=== PATIENT | female | born 1935 | race Caucasian/White ===

== ENCOUNTER 2018-12-17 21:55 | Inpatient (IN) | payer OTHER ==
[~2018-12-17] VITALS: Ht 165.1 cm; Wt 66.2 kg
[~2018-12-17 21:55] MED LIST: ACID REDUCER 1150 MG PO; ALLOPURINOL100 MG PO; ATENOLOL100 M1 PO; ATENOLOL50 M1 PO; CELLCEPT250 MG PO; CEPHALEXIN500 M1 PO; CLONIDINE0.2 MG PO; COZAAR25 M1 PO; CRESTOR10 M1 PO; CYCLOSPORINE PO; CYCLOSPORINE25 M1 PO; DILTIAZEM 24HR120 MG PO; EXELON4.6 MG/24 T; FUROSEMIDE20 M1 PO; Glimepiride1 MG PO; HUMALOG100 U/ML SC; METFORMIN500 MG PO; NEURONTIN300 MG PO; PANTOPRAZOLE SO40 MG PO; SEPTRA DS 800 M1 TAB PO; SODIUM BICARBO650 MG PO; SYNTHROID RP0.1 MG PO; VITAMIN D50000 I3 PO; XARE20MG PO
[2018-12-17 22:17] VITALS: BP 133/68
[2018-12-17 22:39] VITALS: BP 137/44
[2018-12-17 22:59] LABS: HEMATOCRIT 34.7 % (37.0-47.0); HEMOGLOBIN 10.3 g/dl (12.0-16.0); MEAN CORPUSCULAR HGB 27.3 pg (27.0-31.0); MEAN CORPUSCULAR HGB CONC 29.7 g/dl (33.0-37.0); MEAN PLATELET VOLUME 11.1 fl (9.6-12.3); PLATELET COUNT AUTOMATED 569 10*3/uL (130-400); RED BLOOD COUNT 3.77 10*6/uL (4.10-5.10); RED CELL DISTRI WIDTH 17.7 % (0-14.5); WHITE BLOOD COUNT 28.7 10*3/uL (4.8-10.8)
[2018-12-17 23:11] VITALS: BP 94/62
[2018-12-17 23:19] LABS: ALBUMIN 1.6 gm/dl (3.1-4.5); CREATININE 1.31 mg/dL (0.55-1.02); POTASSIUM 4.2 mmol/L (3.5-5.1); TOTAL PROTEIN 6.8 gm/dL (6.4-8.2)
--- NOTE | 2018-12-17 23:21 | NUR ---
PATIENTS DAUGHTER CALLED IN AND WAS GIVEN UPDATE ON HER MOTHER AT THIS TIME. PATIENTS DAUGHTER EXPLAINED TO ME THAT SHE HAD A CVA 4 MONTHS AGO NOT 2 TWO MONTHS AGO.
--- NOTE | 2018-12-17 23:22 | NUR ---
PATIENT HAS ESCORATION UNDER THE LEFT BREAST NO PHOTO TAKEN OF THIS NO DRAINAGE NOTHING OPEN AT THIS TIME.
--- NOTE | 2018-12-17 23:23 | NUR ---
CRITICAL LAB LACTIC ACID 8.9. DR ALEX NOTIFIED OF THIS
[2018-12-17 23:25] LABS: INTERNATIONAL NORM RATIO 1.6 (2.0-3.5)
[2018-12-17 23:26] LABS: TROPONIN I 0.178 ng/ml (<0.045)
[2018-12-17 23:30] VITALS: BP 110/63
[2018-12-17 23:34] LABS: TOTAL CELLS COUNTED 100 #CELLS; TOXIC GRANULATION MARKED
[2018-12-17 23:35] LABS: BURR CELLS MODERATE; PLATELET SUFFICIENCY HIGH (NORMAL)
[2018-12-18] VITALS (16 sets, daily range): BP systolic 79–120; BP diastolic 33–73
[2018-12-18 00:10] LABS: BILIRUBIN 1+ (NEGATIVE); BLOOD NEGATIVE (NEGATIVE); CLARITY SL CLOUDY (CLEAR); COLOR YELLOW (YELLOW); GLUCOSE NEGATIVE (NEGATIVE); KETONE TRACE (NEGATIVE); LEUKO ESTERASE NEGATIVE (NEGATIVE); NITRITE NEGATIVE (NEGATIVE); SPECIFIC GRAVITY 1.025 (1.005-1.030)
[2018-12-18 00:17] LABS: BACTERIA TRACE
--- NOTE | 2018-12-18 00:41 | NUR ---
DR DE ANDA PLACED A RIGHT SIDED SUBCLAVIAN. PATIENT TOLERATED WELL. NO DISTRESS NOTED FROM THE PATIENT.
--- NOTE | 2018-12-18 00:53 | NUR ---
PATIENT SITTING UP IN BED AWAKE AND ALERT AT THIS TIME. NO DISTRESS NOTED. RN WILL CONT TO MONITOR. CONT CHAIR POST MACHINE OPERATOR IN PLACE AT THIS TIME.
--- NOTE | 2018-12-18 03:39 | NUR ---
BLOOD GLUCOSE 9 DR[address] ALEX AWARE
[2018-12-18 03:50] LABS: ABG HCO3 16.7 mmol/l (22-26); ARTERIAL BLOOD GAS PCO2 28.6 mmHg (35-45); ARTERIAL BLOOD GAS PH 7.379 (7.35-7.45); ARTERIAL BLOOD GAS PO2 65.1 mmHg (80-90)
[2018-12-18 03:52] LABS: ABG BASE EXCESS -7.3 mmol/L (-2.0-2.0)
--- NOTE | 2018-12-18 04:20 | NUR ---
A 83 YEAR OLD FEMALE admitted to ICCU, under the services of LEONARDO Cast MD with a diagnosis of HYPOGLYCEMIA,LEUKOCYTOSIS,ELEVATED TROPONINS. Chief complaint is CONFUSION, ABD PAIN. Patient arrived via stretcher from ER. Monitor applied. Initial assessment completed. Vital signs taken and recorded. LEONARDO CAST MD notified of admission to the unit. Orders received. See assessment for past medical history, medications and allergies. Patient and/or family oriented to unit. [facility] ICCU visitation policy reviewed. Clothing/patient valuable form completed. JESÚS STEPHENSON
[2018-12-18] MEDS ORDERED: BASAG SOL SQ (04:39)
[2018-12-18] MEDS ORDERED: RANITIDINE HCL150 M1 PO (04:41)
[2018-12-18] MEDS ORDERED: ELIQUIS2.5 M1 PO (04:43)
[2018-12-18] MEDS ORDERED: ASPIRIN CHEWABL81 MG PO (04:44)
[2018-12-18] MEDS ORDERED: CLONIDINE HCL0.2 MG PO (04:45)
--- NOTE | 2018-12-18 04:49 | NUR ---
MEDICATIONS REVIEWED ON MED LIST WERE MEDICATION BOTTLES BROUGHT IN BY PATIENT. NO FAMILY WITH PATIENT AND PATIENT UNABLE TO VERIFY OTHER HOME MEDS. ANH MCCARTHY RN
--- NOTE | 2018-12-18 05:16 | NUR ---
DR. PACE CALLED FOR ADMITTING ORDERS. WILL WOUND CARE ORDERS IN WHEN SHE SEES PT.
--- NOTE | 2018-12-18 06:12 | NUR ---
MELONY GUZMAN [id number] Please refer to the physician's history and physical for past medical history, comorbid conditions, and allergies. Diagnosis: HYPOGLYCEMIA LEUKOCYTOSIS ELEVATED TROPONIN Gavino Score: 14,MODERATE RISK WOUND DESCRIPTIONS: Wound Number: 1 Location of the wound: Coccyx Type of wound: unstageable Thickness: Full Size: 1.3cm x 1.5cm x <0.1cm Tunneling: none Undermining: none Sinus Tract: none Presence of Exudate: Serous Amount: Light Color: Yellow, red Odor: None Periwound Skin Appearance: Normal Wound edges: approximated Pain (associated with wound): none at time of assessment How does patient state this happened? pt unsure at time of assessment Wound Number: 2 Location of the wound: left buttocks Type of wound: stage 2 Thickness: Partial Size: 0.6cm x 0.6cm x 0.1cm Tunneling: none Undermining: none Sinus Tract: none Presence of Exudate: Serous Amount: Light Color: Red Odor: None Periwound Skin Appearance: Normal Wound edges: approximated Pain (associated with wound): none at time of assessment How does patient state this happened? pt unable to state how this happened Wound Number: 3 Location of the wound: left heel Type of wound: unstageable Thickness: Full Size: 1.5cm x 2.0cm x <0.1cm Tunneling: none Undermining: none Sinus Tract: none Presence of Exudate: none Amount: None Color: Red, black Odor: None Periwound Skin Appearance: Normal Wound edges: intact blister noted Pain (associated with wound): tender to touch How does patient state this happened? pt unsure how this happened Wound Number: 4 Location of the wound: right great toe Type of wound: stage 1 Size: 0.2cm x 0.5cm x <0.1cm Tunneling: none Undermining: none Sinus Tract: none Presence of Exudate: none Amount: None Color: Red Odor: None Periwound Skin Appearance: Normal Wound edges: closed Pain (associated with wound): none at time of assessment How does patient state this happened? pt unable to state how this happened Surface the patient is resting on: XPRT SKIN PREVENTION RECOMMENDATION: 1. Pressure redistribution support surface as appropriate 2. Elevate heels 3. Remove boots/TEDS every shift and reapply 4. Head of bed 30 degrees as tolerated 5. Assess nutrition and hydration 6. Manage moisture 7. Avoid the use of containment devices while in bed 8. Use absorptive products on surfaces limit layers of linens on bed 9. Turn and reposition every 1-2 hours in bed and every 1 hour in chair as tolerated 10. Weight shifts every 15 minutes while up in chair 11. Offloading with pillows or device to keep heels elevated off bed 12. Monitor skin at least every shift 13. Inspect under medical devices twice a day WOUND TREATMENT RECOMMENDATIONS: Wheelchair cushion when oob. Heel raiser pro boots to bilateral heels while in bed. Unstageable guidelines: Cleanse coccyx with nss and apply sureprep around the wound therahoney to wound bed and cover with optifoam gentle Stage 2 guidelines: Cleanse left buttocks with nss and apply sureprep around the wound therahoney to wound bed and cover with optifoam gentle. Unstageable guidelines: Apply sureprep to wound allow time to dry then cover with optifoam gentle. Consult Sanjuanita NGUYENP for possible debridement to coccyx.
--- NOTE | 2018-12-18 06:28 | NUR ---
PT RESTING IN BED WITH HOB ELEVATED. SIDE RAILS UP X'S 2. RIJ MLC INTACT. HEP LOCK INTACT RAN. TORREZ PATENT AND DRAINING SCANT CONRADO URINE. MOIST COUGH NOTED. CARDIZEM GTT CONT AT 5MG. MONITOR REMAINS A-FIB IN THE 90S. D10 CONT. BEDSIDE BLOOD SUGAR IS 45. 1 AMP OF D50 GIVEN. WILL MONITOR. CONT TO C/O DIFFUSE ABD PAIN. CONDITION GUARDED.
--- NOTE | 2018-12-18 07:50 | NUR ---
DR. PACE HERE TO SEE PATIENT
--- NOTE | 2018-12-18 08:41 | NUR ---
MEDICATED WITH DILAUDID 0.5MG IV FOR COMPLAINTS OF ABDOMINAL PAIN. RATES PAIN A 10 ON A PAIN SCALE OF 1-10.
--- NOTE | 2018-12-18 10:30 | NUR ---
Surgical Coder in to talk to patient. Patient states lives at home with her granddaughter. There are 0 steps in the home. There is a wheelchair ramp. Physician: Dr. Derrek Delgado [facility]: [facility] Home health services: none Patient's level of ADLs: MODERATE ASSIST Patient has working utilities: yes DME: walker Follow-up physician's appointment after d/c: she prefers to make her own follow up appt after discharge Does patient want to access PORTAL?: no Discharge plan discussed with patient. She states she lives in [place] with her granddaughter. She needs assistance with her ADLs and ambulates with a walker. She states she has been at [facility] recently. She is unsure about discharge planning. Will speak to family. MISTY MCNALLY
--- NOTE | 2018-12-18 10:40 | NUR ---
DR. COOK HERE TO SEE PATIENT ON CONSULT.
--- NOTE | 2018-12-18 10:53 | NUR ---
TAKEN DOWN FOR MRI ABDOMEN
--- NOTE | 2018-12-18 10:59 | NUR ---
DR. COOK, DR. CHINO, DR. AC, AND DR. TINEO ALL NOTIFIED OF CONSULTS.
--- NOTE | 2018-12-18 12:33 | NUR ---
BLOOD SUAGR 37. GIVEN 1 AMP D50
--- NOTE | 2018-12-18 13:30 | NUR ---
DR. PACE AND DR. CHINO MADE AWARE OF MRI ABDOMEN RESULTS
--- NOTE | 2018-12-18 15:13 | NUR ---
Message left for daughterIzzy, at [phone] regarding discharge planning. Awaiting return call.
--- NOTE | 2018-12-18 16:54 | NUR ---
COPY OF POWER OF BRAZING MACHINE OPERATOR HELPER PLACED ON CHART.
--- NOTE | 2018-12-18 18:03 | NUR ---
DR. SANTOYO'S ANSWERING SERVICE NOTIFIED OF CONSULT.
--- NOTE | 2018-12-18 19:14 | NUR ---
DR. SANTOYO CALLED IN. UPDATED ON PT CONDITION.
[2018-12-18 19:33] LABS: HEMATOCRIT 27.9 % (37.0-47.0); HEMOGLOBIN 8.6 g/dl (12.0-16.0); MEAN CELL VOLUME 91.8 fl (81.0-99.0); MEAN CORPUSCULAR HGB 28.3 pg (27.0-31.0); MEAN CORPUSCULAR HGB CONC 30.8 g/dl (33.0-37.0); MEAN PLATELET VOLUME 11.1 fl (9.6-12.3); PLATELET COUNT AUTOMATED 460 10*3/uL (130-400); RED BLOOD COUNT 3.04 10*6/uL (4.10-5.10); RED CELL DISTRI WIDTH 17.9 % (0-14.5); WHITE BLOOD COUNT 24.7 10*3/uL (4.8-10.8)
--- NOTE | 2018-12-18 19:47 | NUR ---
1929 DILAUDID 1MG IV GIVEN FOR C/O'S DIFFUSE ABD PAIN. MOIST COUGH NOTED. RESP THERAPY HERE. SUCTIONED ORALLY FOR SMALL AMOUNT BLOODY SPUTUM. CLENCHES MOUTH SHUT. NT SUCTIONING DONE. SUCTIONED FOR MODERATE AMOUNT WILLETT SPUTUM. HAD COARSE RHONCHI, LESSENED AFTER SUCTIONING. REPOSITIONED ON LEFT SIDE. HOB ELEVATED. ORAL CARE DONE AND ORAL BALANCE APPLIED TO MUCOUS MEMBRANES.
[2018-12-18 19:48] LABS: ALBUMIN 1.3 gm/dl (3.1-4.5); CREATININE 1.41 mg/dL (0.55-1.02); PHOSPHOROUS 3.5 mg/dL (2.5-4.9); POTASSIUM 4.1 mmol/L (3.5-5.1); TOTAL PROTEIN 5.3 gm/dL (6.4-8.2)
[2018-12-18 19:53] LABS: TOTAL CELLS COUNTED 100 #CELLS
[2018-12-18 19:54] LABS: TOXIC GRANULATION MODERATE
[2018-12-18 19:55] LABS: PLATELET SUFFICIENCY HIGH (NORMAL)
[2018-12-18 19:56] LABS: BURR CELLS FEW; TARGET CELLS FEW
--- NOTE | 2018-12-18 20:00 | NUR ---
PT HAD RHONCHI. WOULD NOT OPEN MOUTH TO SUCTION THROAT. PT NT SX RIGHT NARE. PASSED EASILY. THICK CLEAR/WHITE/CREAM SECRETIONS. PT TOLERATED WELL
--- NOTE | 2018-12-18 20:06 | NUR ---
EARLIER DILAUDID EFFECTIVE. RESTING IN BED WITH EYES CLOSED. PULSE OX 100% ON 3L. USING EAR PULSE OX. CARDIZEM GTT CONT AT 5MG. MONITOR REMAINS A-FIB WITH A VR IN THE 80-90'S. Q2H BP'S CONT. SEE INTERVENTION SCREEN. IV FLUIDS CONT. RIJ MLC INTACT. TORREZ PATENT AND DRAINING SCANT CONRADO URINE. DR. SANTOYO MADE AWARE OF LOW URINE OUTPUT EARLIER. DRSG INTACT TO LEFT HEEL AND COCCYX AND LEFT BUTTOCK. HEEL PROTECTORS INTACT.
--- NOTE | 2018-12-18 22:02 | NUR ---
REMAINS SLEEPING WIHTOUT DISTRESS.
[2018-12-19] VITALS: BP 92/50
--- NOTE | 2018-12-19 00:06 | NUR ---
BED IN ROTATION MODE. FREQUENT ORAL CARE DONE. PT REMAINS DROWSY. NO FURTHER C/O'S ABD PAIN VOICED.
[2018-12-19 02:00] VITALS: BP 96/40
[2018-12-19 04:00] VITALS: BP 94/44
[2018-12-19 04:38] LABS: HEMATOCRIT 27.2 % (37.0-47.0); HEMOGLOBIN 8.2 g/dl (12.0-16.0); MEAN CORPUSCULAR HGB 27.4 pg (27.0-31.0); MEAN CORPUSCULAR HGB CONC 30.1 g/dl (33.0-37.0); MEAN PLATELET VOLUME 11.6 fl (9.6-12.3); PLATELET COUNT AUTOMATED 432 10*3/uL (130-400); RED BLOOD COUNT 2.99 10*6/uL (4.10-5.10); RED CELL DISTRI WIDTH 18.1 % (0-14.5); WHITE BLOOD COUNT 24.2 10*3/uL (4.8-10.8)
[2018-12-19 04:53] LABS: ALBUMIN 1.2 gm/dl (3.1-4.5); CREATININE 1.51 mg/dL (0.55-1.02); PHOSPHOROUS 3.4 mg/dL (2.5-4.9); TOTAL PROTEIN 5.2 gm/dL (6.4-8.2)
[2018-12-19 04:56] LABS: ATYPICAL LYMPHS 1 % (0-0); BURR CELLS FEW; OVALOCYTES FEW; PLATELET SUFFICIENCY HIGH (NORMAL); TOTAL CELLS COUNTED 100 #CELLS
[2018-12-19 04:57] LABS: TOXIC GRANULATION SLIGHT
[2018-12-19 06:00] VITALS: BP 101/53
--- NOTE | 2018-12-19 06:07 | NUR ---
BEDSIDE BLOOD SUGAR IS 117. IV FLUIDS AND CARDIZEM GTT CONT. OPENS EYES TO CARE. FREQUENT ORAL CARE CONT. TORREZ PATENT. CONDITION GUARDED.
[2018-12-19 08:00] VITALS: BP 82/40
--- NOTE | 2018-12-19 08:00 | NUR ---
DR. PACE HERE TO SEE PATIENT. SHE SPOKE WITH DAUGHTER GIACOMO CASANOVA AND DECISION WAS MADE TO MAKE PATIENT A DNR-CC AND TO CONSULT HOSPICE. DESHAWN'S D/C'D AND [facility] D/C'D.
--- NOTE | 2018-12-19 08:15 | NUR ---
DR. SANTOYO HERE TO SEE PATIENT ON CONSULT. UPDATED WITH PLAN OF CARE
--- NOTE | 2018-12-19 08:25 | NUR ---
Spoke to daughter, Izzy, regarding discharge planning. She stated she just spoke to a doctor and they are not sure she is going to make it out of the hospital. Daughter would like patient to go to [facility] for rehab after discharge. Patient lives with her grandson and [id number] as they were the only family that could lift the patient. The [id number] now has a 1 yo and is having difficulty with providing care to the patient. handy worker notified.
--- NOTE | 2018-12-19 11:02 | NUR ---
Home Theater Installer in to see patient. She opens her eyes to verbal stimuli and will shake her head yes and no but it not verbal at this time. When asked patient if she knew where she was she shook her head yes but when asked if she could tell me she shook her head no. Asked patient if she knew the granddaughter at the bedside and she shook her head yes but when asked for her to tell me her granddaughter's name she shook her head no. Spoke to granddaughter who is at the patient's bedside. sera Ch, is HPOA. NOAH papers on chart. Forrest is currently in [facility]. machine operator farmworker to reach out to [facility] to speak to Forrest regarding hospice for patient.
--- NOTE | 2018-12-19 11:06 | NUR ---
ELDER contacted [facility] were [facility] is currently. Due to security measures a return call will be needed. Will await return call. -ELDER Mcdaniels
--- NOTE | 2018-12-19 11:20 | NUR ---
Patients son Forrest Vora was able to reach back out to this [employer]. He is agreeable to hospice. He did not have a preference. [employer] will fax referral to [facility].
--- NOTE | 2018-12-19 11:20 | NUR ---
SON INDIO CASANOVA (POA) CALLED IN AND SPOKE WITH MYSELF AND SECOND RN SASCHA WASHINGTON AND CODE STATUS MADE A DNR-CC
--- NOTE | 2018-12-19 11:24 | NUR ---
Notified family at bedside regarding social worker clinical speaking with HPOA and hospice being consulted. Spoke to daughter, Izzy, at [phone] regarding above and she was in agreement.
--- NOTE | 2018-12-19 11:35 | NUR ---
TURNED AND REPOSITIONED ONTO LEFT SIDE, ORAL CARE GIVEN. MOANING IN PAIN. MEDICATED WITH DILAUDID 1MG IV ORDERED PRN PAIN
[2018-12-19 12:00] VITALS: BP 89/44
--- NOTE | 2018-12-19 12:35 | NUR ---
ELDER received call back from [facility]. ELDER was able to speak with the patients grandson Forrest Vora. Forrest gave the okay to have his cousin Delmy Dupont sign the proper documents to admit the patient to Hospice. -ELDER Mcdaniels
--- NOTE | 2018-12-19 13:07 | NUR ---
[facility] HERE TO SEE PATIENT.
--- NOTE | 2018-12-19 13:13 | NUR ---
DISCHARGED TO INPATIENT [facility]
== END 2018-12-19 13:19 | disposition hospice, home (50) | DRG 872 ==
LOC: ED 21:55 → ICCU 12-18 03:13 → EDHOLD 12-18 03:13 → ICCU 12-18 03:20
PROVIDERS: Emergency Medicine; Internal Medicine Nephrology; ADMIT Internal Medicine
PROC: 02HV33Z Insertion of Infusion Device into Superior Vena Cava, Percutaneous Approach (ICD-10-PCS; principal; 2018-12-18)
DX: A41.50 Gram-negative sepsis, unspecified (principal); N17.9 Acute kidney failure, unspecified; M48.54XA Collapsed vertebra, not elsewhere classified, thoracic region, initial encounter for fracture; T86.12 Kidney transplant failure; R65.20 Severe sepsis without septic shock; G89.29 Other chronic pain; R62.7 Adult failure to thrive; R16.1 Splenomegaly, not elsewhere classified; L89.152 Pressure ulcer of sacral region, stage 2; I48.20 Chronic atrial fibrillation, unspecified; E11.649 Type 2 diabetes mellitus with hypoglycemia without coma; R79.89 Other specified abnormal findings of blood chemistry; K57.30 Diverticulosis of large intestine without perforation or abscess without bleeding; E83.42 Hypomagnesemia; D64.9 Anemia, unspecified; I48.21 Permanent atrial fibrillation; D73.5 Infarction of spleen; N18.9 Chronic kidney disease, unspecified; E11.22 Type 2 diabetes mellitus with diabetic chronic kidney disease; E78.5 Hyperlipidemia, unspecified; I12.9 Hypertensive chronic kidney disease with stage 1 through stage 4 chronic kidney disease, or unspecified chronic kidney disease; Z66 Do not resuscitate; Z51.5 Encounter for palliative care; Y84.8 Other medical procedures as the cause of abnormal reaction of the patient, or of later complication, without mention of misadventure at the time of the procedure; Y92.89 Other specified places as the place of occurrence of the external cause; Z87.440 Personal history of urinary (tract) infections; Z86.73 Personal history of transient ischemic attack (TIA), and cerebral infarction without residual deficits; Z90.49 Acquired absence of other specified parts of digestive tract; Z79.899 Other long term (current) drug therapy; Z79.01 Long term (current) use of anticoagulants; Z79.84 Long term (current) use of oral hypoglycemic drugs; Z79.82 Long term (current) use of aspirin

== ENCOUNTER 2018-12-19 14:20 | Inpatient (IN) | payer OTHER ==
[~2018-12-19] VITALS: Ht 165.1 cm; Wt 66.2 kg
--- NOTE | ~2018-12-19 | WRIGHTHP ---
[place], [place] PATIENT HISTORY AND PHYSICAL EXAM NAME: MELONY GUZMAN UNIT #: [id number] ROOM: 422 DOCTOR: LEONARDO PACE MD BIRTHDATE: [birth year] DOS: 12/20/2018 HISTORY OF PRESENT ILLNESS: The patient is 83 years old. I have known the patient for a short few days while she has been in the hospital. She was admitted to hospice care and this morning, the patient is continuing to moan. She has quite a lot of abdominal pain and chest appears to be moist with a moist sounding cough. She does not have any complaints, mostly moans and is otherwise nonverbal. PAST MEDICAL HISTORY: Significant for: 1. Gram-negative Escherichia coli sepsis. 2. Possibility of splenic hematoma versus mass. 3. Permanent atrial fibrillation with rapid ventricular response. 4. Hypoglycemia. 5. History of end-stage renal failure, status post renal transplant, noncompliance, poor insight to medical problems. 6. Adult failure to thrive. MEDICATIONS: Medications are as dictated by the hospice care. SOCIAL HISTORY: Nonsmoker. She is currently living with her daughter. PHYSICAL EXAMINATION: GENERAL: She is awake and alert, but not oriented to time, place or person. VITAL SIGNS: Blood pressure is 41/19, pulse is 64, respirations 24, temperature 97.6. LUNGS: Diminished breath sounds. Scattered wheezes and rhonchi. HEART: Irregular, heart rate in the low 90s to low 100s. ABDOMEN: Distended with quite a lot of tenderness all over the abdomen. EXTREMITIES: Without any edema. ASSESSMENT AND PLAN: Escherichia coli sepsis, possible splenic mass, permanent atrial fibrillation, chronic renal failure, adult failure to thrive. The patient is to be continued on hospice care. Because of considerable discomfort, we will increase the morphine IV to 2 mg per hour. [place], [place] PATIENT HISTORY AND PHYSICAL EXAM NAME: MELONY GUZMAN UNIT #: [id number] ROOM: 422 DOCTOR: LEONARDO PACE MD BIRTHDATE: [birth year] LEONARDO PACE MD CM:HISPHYS:PATIENT HISTORY AND PHYSICAL EXAMINATION 1 4 LEONARDO PACE MD 12/20/18823 interface
--- NOTE | ~2018-12-19 | PR ---
[place], [place] PROGRESS NOTE NAME: [facility]ELON[facility] GU[facility]MAN [id number] UNIT #: [id number] ROOM: 422 DOCTOR: LEONARDO PACE MD BIRTHDATE: [birth year] DOS: 12/21/2018 SUBJECTIVE: The patient is about the same. OBJECTIVE: VITAL SIGNS: Graphic trend shows blood pressure of 87/23, pulse of 90, respirations 10, temperature 97. LUNGS: Diminished breath sounds. Clear. HEART: Irregular. ABDOMEN: Obese. EXTREMITIES: Without any edema. Still warm and dry. ASSESSMENT AND PLAN: 1. Escherichia coli sepsis. 2. Splenic mass versus hematoma. 3. End-stage renal failure, status post renal transplant. The patient has been admitted to hospice care. She appears to be comfortable on the current dose of morphine. Otherwise, supportive and symptomatic care to be continued. LEONARDO PACE MD CM:PNTRANS [id number] LEONARDO PACE MD 12/21/18 0838 interface
[~2018-12-19 14:20] MED LIST changes: +ASPIRIN CHEWABL81 MG PO; +BASAG SOL SQ; +CLONIDINE HCL0.2 MG PO; +ELIQUIS2.5 M1 PO; +RANITIDINE HCL150 M1 PO
[2018-12-19 14:21] VITALS: BP 110/40
--- NOTE | 2018-12-19 14:21 | NUR ---
Time: 1420 A 83 year old F admitted to under services of LEONARDO CAST MD. UNDER CARE OF [facility] LESLY RYAN
[2018-12-19 16:00] VITALS: BP 62/25
--- NOTE | 2018-12-19 16:30 | NUR ---
PATIENT RESTING COMFORTABLY AT THIS TIME. MORPHINE GTT INFUSING AT 1MG/HR VIA MAIL ROOM PUMP. WILL CONTINUE TO MONITOR. 02 IN USE VIA 2LNC.
--- NOTE | 2018-12-19 17:56 | NUR ---
FAMILY AT BEDSIDE.
--- NOTE | 2018-12-19 18:13 | NUR ---
FAMILY AT BEDSIDE.
--- NOTE | 2018-12-19 22:53 | NUR ---
PATIENT RESTING IN BED WITH EYES CLOSED. NO SIGNS OR SYMPTOMS OF DISTRESS NOTED. AROUSES TO VERBAL STIMULI. WHEN ASKED IF PATIENT IS IN PAIN, SHE REPLIES NO AND SHAKES HER HEAD. MORPHINE DRIP INFUSING A 1MG HOUR. RESPIRATIONS REGULAR AND NON-LABORED. O2 ON VIA N/C AT 2L. TORREZ CATH PATENT DRAINING DARK CONRADO URINE. BED ALARM ON. WILL CONTINUE TO MONITOR. CALL LIGHT IN REACH.
[2018-12-20] VITALS: BP 41/19
--- NOTE | 2018-12-20 07:00 | NUR ---
PT AWAKE. NO S/S DISCOMFORT. BEDSIDE REPORT RECEIVED FROM CHRISTOFER STANFORD
--- NOTE | 2018-12-20 07:55 | NUR ---
DR PACE IN TO SEE PT. ORDER RECEIVED TO INCREASE IV MORPHINE DRIP TO 2 MG/HR
[2018-12-20 08:00] VITALS: BP 98/42
--- NOTE | 2018-12-20 08:31 | NUR ---
MORPHINE GTT INCREASED TO 2MG/HR PER DR'S ORDER.
--- NOTE | 2018-12-20 09:00 | NUR ---
Pole Shaver Helper in to see patient. She is GIP hospice at this time. Will continue to follow.
--- NOTE | 2018-12-20 13:26 | NUR ---
[facility] NURSE IN TO SEE PT.
--- NOTE | 2018-12-20 13:27 | NUR ---
PT'S DAUGHTER GIACOMO IN TO VISIT WITH HER MOTHER AND UPDATED ON HER CONDITION.
[2018-12-20 16:00] VITALS: BP 119/57
[2018-12-20 20:00] VITALS: BP 53/24
--- NOTE | 2018-12-20 20:00 | NUR ---
EYES OPEN NO DISTRESS, DOES NOT RESPOND. ROAD CONDUCTOR PUMP RUNNING. WILL MONITOR.
[2018-12-21] VITALS: BP 87/23
--- NOTE | 2018-12-21 | NUR ---
PATIENT LAYING IN BED WITH EYES OPEN. NOT RESPONDING TO VERBAL STIMULI. MORPHINE AND FLUIDS INFUSING PER ORDER. BED LOCKED IN LOWEST POSITION. BED ALARM ON FOR SAFETY. CALL LIGHT WITHIN REACH.
--- NOTE | 2018-12-21 00:26 | NUR ---
24 HR chart check completed.
[2018-12-21 08:00] VITALS: BP 98/30
--- NOTE | 2018-12-21 08:00 | NUR ---
Patient resting quietly with eyes closed, no discomfort noted. Respirations easy on O2. Morphine and NS IV's infusing per orders. No overt distress. Will monitor. WILD JAMES R
--- NOTE | 2018-12-21 08:30 | NUR ---
GRANDDAUGHTER CALLED TO CHECK ON PT. UPDATED ON STATUS AND VITALS OF PREVIOUS SHIFT.
--- NOTE | 2018-12-21 10:37 | NUR ---
HOSPICE IN TO SEE PT. NO NEW ORDERS AT THIS TIME.
--- NOTE | 2018-12-21 10:39 | NUR ---
Beba with [employer] called in to verify patients date of discharge to [facility]. ELDER explained. -ELDER Mcdaniels
--- NOTE | 2018-12-21 11:59 | NUR ---
GRANDDAUGHTER AT BEDSIDE. PT RESTING COMFORTABLY, MORPHINE AND IVF INFUSING ORDERED. WILL MONITOR
--- NOTE | 2018-12-21 14:38 | NUR ---
Nutritional Support Services Note: Pt on Hospice Care. Regular diet as ordered. Encourage intake as able. IVF at this time. Will follow as needed. Susanne Silva Rdn Ld
[2018-12-21 16:00] VITALS: BP 123/87
--- NOTE | 2018-12-21 18:48 | NUR ---
FAMILY REMAINS AT BEDSIDE. IVF AND MORPHINE GTT INFUSING ORDERED. WILL MONITOR
--- NOTE | 2018-12-21 19:20 | NUR ---
INTRODUCED SELF TO FAMILY AT BEDSIDE, IN ROOM WITH OFF GOING SHIFT RN TO VERIFY MORPHINE INFUSION VOLUMES. PATIENT IN NO APPARENT DISTRESS, VITAL SIGNS ASSESSMENT MANUALLY. FAMILY AT BEDSIDE.
--- NOTE | 2018-12-21 19:30 | NUR ---
24 HOUR CHART CHECK COMPLETED
[2018-12-21 20:00] VITALS: BP 85/66
--- NOTE | 2018-12-21 21:30 | NUR ---
CALLED INTO ROOM BY FAMILY AT THIS TIME TO ASSESS PATIENT FOR VITAL SIGNS, PATIENT FOUND TO BE PULSELESS AND NOT BREATHING AT THIS TIME, VERIFIED BY SECOND RN DARLINE HAINES. FAMILY AWARE OF PATIENT PASSING, DAUGHTER GIACOMO NOTIFIED OF PATIENT PASSING VIA TELEPHONE STATED SHE WOULD BE RETURNING TO THE HOSPITAL, SECURITY MADE AWARE OF PATIENT RETURNING TO ALLOW HER BACK ONTO THE FLOOR. FAMILY REMAINS AT BEDSIDE.
--- NOTE | 2018-12-21 21:41 | NUR ---
[facility] NOTIFIED AT THIS TIME OF PATIENT PASSING, ALL QUESTIONS ANSWERED AT THIS TIME, PER [facility] PATIENT IS NOT A CANDIDATE AND HAS BEEN RELEASED, RELEASE NUMBER [id number].
--- NOTE | 2018-12-21 21:48 | NUR ---
[facility] ANSWERING SERVICE NOTIFIED AT THIS TIME OF PATIENT PASSING, MUSIC GRAPHER YASMIN FORWARDING MESSAGE TO EARLY CHILDHOOD EDUCATION INSTRUCTOR RN.
--- NOTE | 2018-12-21 21:52 | NUR ---
DR. PACE NOTIFED OF PATIENT PASSING AT THIS TIME. MEI FROM [facility] RETURNED CALL AT THIS TIME AND NOTIFIED OF PATIENT PASSING.
--- NOTE | 2018-12-21 22:40 | NUR ---
FAMILY AT BEDSIDE AT THIS TIME WAITING FOR OTHER FAMILY MEMBERS TO ARRIVE.
--- NOTE | 2018-12-22 00:10 | NUR ---
MADAN CHAPEL NOTIFIED AT THIS TIME OF PATIENT AND READY FOR REMOVAL. CALL SERVICE WILL NOTIFY ON-CALL MEMBER.
--- NOTE | 2018-12-22 00:50 | NUR ---
MADAN CHAPEL HERE TO REMOVE BODY AT THIS TIME.
== END 2018-12-22 00:55 | disposition expired | DRG 871 ==
LOC: 4E 14:20
PROVIDERS: ADMIT Internal Medicine
DX: A41.51 Sepsis due to Escherichia coli [E. coli] (principal); N18.6 End stage renal disease; I48.21 Permanent atrial fibrillation; R62.7 Adult failure to thrive; R16.1 Splenomegaly, not elsewhere classified; Z51.5 Encounter for palliative care; Z94.0 Kidney transplant status